=== PATIENT | female | born 1930 | race Caucasian/White ===

== ENCOUNTER 2017-06-29 07:55 | Inpatient (IN) ==
[2017-06-29] MEDS ORDERED: IOPAMIDOL 100 ML BOTTLE IV ONE (07:56)
--- NOTE | 2017-06-29 08:28 | Emergency Department Note ---
Chest Pain HPI - General Chief Complaint: Chest Pain Stated Complaint: Weakness, Shortness of breath Time Seen by Provider: 06/29/17 08:24 Source: patient Mode of arrival: ambulatory Limitations: no limitations - History of Present Illness HPI Narrative: 86-year-old female with a history of chest pain with some shortness of breath. Had some signs and symptoms yesterday in the evening and afternoon. Also had some shortness of breath and chest pain this morning. She had some left knee pain as well as she was doing some extra walking. Today she has no pain in her calves or her knee.. At this time she is having very minima signs or symptoms they said that very dull chest pain she had is not present at this time. And the family had to remind her that she states she said she had some pain earlier at this time she denies she does take some Lasix for swelling in her lower extremities but they do not know that she has any sort of asthma COPD or CHF - Related Data Home Medications Medication Instructions Recorded Confirmed aspirin 81 mg tablet,delayed 81 mg PO QDAY 09/10/16 06/29/17 release cholecalciferol (vitamin D3) 1,000 1,000 unit PO QDAY cap 09/10/16 06/29/17 unit capsule potassium gluconate 500 mg (83 mg) 500 mg PO QDAY tab 09/10/16 06/29/17 tablet Oxybutynin Chloride [Ditropan] 10 mg PO BID 06/29/17 06/29/17 Previous Rx's Medication Instructions Recorded Four Wheeled Walker #1 each 08/28/15 furosemide 20 mg tablet See Dose Instructions PO QDAY PRN 06/27/16 90 Days #90 tab bupropion HCl SR 150 mg tablet,12 150 mg PO QAM 90 Days #90 tab 10/21/16 hr sustained-release citalopram 40 mg tablet 40 mg PO QDAY 90 Days #90 tab 12/02/16 simvastatin 20 mg tablet 20 mg PO QPM 90 Days #90 tab 12/02/16 Allergies Allergy/AdvReac Type Severity Reaction Status Date / Time adhesive tape Allergy Intermediate unknown Verified 02/17/17 16:31 Review of Systems All systems ED: reviewed and negative except as stated. Constitutional: Denies: fever, chills Eyes: Denies: eye pain ENT ED: Denies: ear pain Cardiovascular: Reports: chest pain (Resolved at this time). Denies: palpitations, dyspnea on exertion, orthopnea, edema Respiratory: Reports: as per HPI, shortness of breath. Denies: cough, hemoptysis Gastrointestinal: Denies: abdominal pain, nausea Genitourinary: Denies: urgency, dysuria, frequency Musculoskeletal: Denies: back pain Integumentary: Denies: rash Neurological: Denies: headache Psychiatric: Denies: anxiety, depression Endocrine: Denies: fatigue Hematological/Lymphatic: Denies: easy bleeding Allergic/Immunologic: Denies: facial swelling Chest Pain PMH - Past Medical History Medical history: Reports: hyperlipidemia, osteoporosis, other (Bladder incontinence) Psychiatric history: Reports: depression - Social History smoking status: Never smoker Physical Exam Limitations: no limitations Course Vital Signs Pulse Rate 74 06/29/17 07:56 Respiratory Rate 30 H 06/29/17 07:56 Pulse Oximetry (%) 93 06/29/17 07:56 Pulse Rate 75 06/29/17 08:25 Respiratory Rate 23 H 06/29/17 08:25 Blood Pressure 127/81 06/29/17 08:16 Pulse Oximetry (%) 97 06/29/17 08:25 Chest Pain - MDM Narrative Medical decision making narrative: Waiting for results of laboratory and x-rays patient transferred the care of Dr. power at 0900 hrs. - Lab Data Result diagrams: 06/29/17 08:19 06/29/17 08:18 Lab Results 06/29/17 06/29/17 Range/Units 08:18 08:19 WBC 9.9 (4.5-11.0) K/mcL RBC 3.57 L (4.00-5.20) M/mcL Hgb 11.8 L (12.0-15.0) g/dL Hct 34.5 L (36.0-48.0) % MCV 96.7 (80.0-100.0) fL MCH 33.0 (26.0-34.0) pg MCHC 34.2 (31.0-36.0) g/dL RDW 13.0 (11.5-14.5) % Plt Count 218 (140-440) K/mcL MPV 9.7 (7.4-10.4) fL Gran % 82.1 H (38.0-78.0) % Lymph % (Auto) 10.1 L (15.5-49.0) % [place] % (Auto) 5.9 (1.0-12.0) % Eos % (Auto) 1.7 (0.0-7.0) % Baso % (Auto) 0.2 (0.0-2.0) % Gran # 8.2 H (1.8-8.0) K/mcL Lymph # (Auto) 1.0 L (1.5-4.8) K/mcL [place] # (Auto) 0.6 (0.1-0.9) K/mcL Eos # (Auto) 0.2 (0.0-0.7) K/mcL Baso # (Auto) 0 (0.0-0.3) K/mcL VBG Lactic Acid 1.7 (0.5-2.2) mmol/L Disposition Pt seen by PERIOPERATIVE NURSE/PA only: No Referrals: Nikhil Estrada MD [Primary Care Provider] -
[2017-06-29 08:50] LABS: Basophils # (Auto) 0 K/mcL (0.0-0.3); Basophils % (Auto) 0.2 % (0.0-2.0); Eosinophils # (Auto) 0.2 K/mcL (0.0-0.7); Eosinophils % (Auto) 1.7 % (0.0-7.0); Granulocytes % (Auto) 82.1 % (38.0-78.0); Lymphocytes % (Auto) 10.1 % (15.5-49.0); Mean Cell Volume 96.7 fL (80.0-100.0); Mean Corpuscular HGB Conc 34.2 g/dL (31.0-36.0); Monocytes # (Auto) 0.6 K/mcL (0.1-0.9); Monocytes % (Auto) 5.9 % (1.0-12.0); Platelet Count 218 K/mcL (140-440); RBC 3.57 M/mcL (4.00-5.20)
--- NOTE | 2017-06-29 09:01 | XRay Report ---
INDICATION: Chest pain. Dyspnea. TECHNIQUE: PA and lateral upright chest x-ray COMPARISON: 02/01/2017, 08/20/2012 FINDINGS:No focal pulmonary infiltrate or mass. Heart size is within normal limits and stable. No pulmonary edema. No pulmonary congestion. There is minimal blunting of the right posterior costophrenic sulcus which may indicate a very small effusion. There is mild right convex thoracolumbar scoliosis Chest x-ray is otherwise stable. IMPRESSION: 1. No pulmonary edema or pulmonary congestion 2. No significant interval change since 02/01/2017 Interpreted and Authenticated by: Timothy Cee 06/29/17
[2017-06-29 09:12] LABS: ALT/SGPT 10 U/l (0-40); Albumin 3.5 gm/dL (3.2-5.2); Albumin/Globulin Ratio 1.3 (1.0-2.3); Alkaline Phosphatase 83 U/L (39-117); Blood Urea Nitrogen 15 mg/dl (8-23); Creatine Kinase 83 IU/L (24-170); Creatine Kinase MB 6.2 ng/ml (0-2.9)
[2017-06-29] MEDS: NITROGLYCERIN 0.4 MG TAB.SUBL SL PRN ×2 (10:19→10:38)
[2017-06-29 10:54] LABS: Myoglobin 107 ng/ml (25-58)
[2017-06-29] MEDS ORDERED: LORazepam 2 MG/ML VIAL IV ONE (12:10)
--- NOTE | 2017-06-29 12:49 | Emergency Department Note ---
Chest Pain HPI - General Chief Complaint: Chest Pain Stated Complaint: Weakness, Shortness of breath Time Seen by Provider: 06/29/17 08:24 Source: patient Mode of arrival: ambulatory Limitations: no limitations - Related Data Home Medications Medication Instructions Recorded Confirmed aspirin 81 mg tablet,delayed 81 mg PO QDAY 09/10/16 06/29/17 release cholecalciferol (vitamin D3) 1,000 1,000 unit PO QDAY cap 09/10/16 06/29/17 unit capsule potassium gluconate 500 mg (83 mg) 500 mg PO QDAY tab 09/10/16 06/29/17 tablet Oxybutynin Chloride [Ditropan] 10 mg PO BID 06/29/17 06/29/17 Previous Rx's Medication Instructions Recorded Four Wheeled Walker #1 each 08/28/15 furosemide 20 mg tablet See Dose Instructions PO QDAY PRN 06/27/16 90 Days #90 tab bupropion HCl SR 150 mg tablet,12 150 mg PO QAM 90 Days #90 tab 10/21/16 hr sustained-release citalopram 40 mg tablet 40 mg PO QDAY 90 Days #90 tab 12/02/16 simvastatin 20 mg tablet 20 mg PO QPM 90 Days #90 tab 12/02/16 Allergies Allergy/AdvReac Type Severity Reaction Status Date / Time adhesive tape Allergy Intermediate unknown Verified 02/17/17 16:31 Review of Systems Constitutional: Denies: fever, chills Eyes: Denies: eye pain ENT ED: Denies: ear pain Cardiovascular: Reports: chest pain (Resolved at this time). Denies: palpitations, dyspnea on exertion, orthopnea, edema Respiratory: Reports: as per HPI, shortness of breath. Denies: cough, hemoptysis Gastrointestinal: Denies: abdominal pain, nausea Genitourinary: Denies: urgency, dysuria, frequency Musculoskeletal: Denies: back pain Integumentary: Denies: rash Neurological: Denies: headache Psychiatric: Denies: anxiety, depression Endocrine: Denies: fatigue Hematological/Lymphatic: Denies: easy bleeding Allergic/Immunologic: Denies: facial swelling Chest Pain PMH - Past Medical History Medical history: Reports: hyperlipidemia, osteoporosis, other (Bladder incontinence) Psychiatric history: Reports: depression - Social History smoking status: Never smoker Physical Exam Limitations: no limitations Course Vital Signs Pulse Rate 74 06/29/17 07:56 Respiratory Rate 30 H 11/19/17 07:56 Pulse Oximetry (%) 93 06/29/17 07:56 Pulse Rate 64 06/29/17 12:01 Respiratory Rate 33 H 06/29/17 12:01 Blood Pressure 96/74 06/29/17 12:01 Pulse Oximetry (%) 89 L 06/29/17 12:01 Chest Pain - MDM Narrative Medical decision making narrative: This patient has fairly extensive pulmonary emboli bilaterally but not something that would require thrombolysis currently. She will be admitted to telemetry. - Lab Data Lab results reviewed: Yes I reviewed the patient's lab results. Result diagrams: 06/29/17 08:19 06/29/17 08:18 Lab Results 06/29/17 06/29/17 06/29/17 Range/Units 08:18 08:18 08:18 WBC (4.5-11.0) K/mcL RBC (4.00-5.20) M/mcL Hgb (12.0-15.0) g/dL Hct (36.0-48.0) % MCV (80.0-100.0) fL MCH (26.0-34.0) pg MCHC (31.0-36.0) g/dL RDW (11.5-14.5) % Plt Count (140-440) K/mcL MPV (7.4-10.4) fL Gran % (38.0-78.0) % Lymph % (Auto) (15.5-49.0) % [place] % (Auto) (1.0-12.0) % Eos % (Auto) (0.0-7.0) % Baso % (Auto) (0.0-2.0) % Gran # (1.8-8.0) K/mcL Lymph # (Auto) (1.5-4.8) K/mcL [place] # (Auto) (0.1-0.9) K/mcL Eos # (Auto) (0.0-0.7) K/mcL Baso # (Auto) (0.0-0.3) K/mcL D-Dimer (0.00-0.40) ug/ml VBG Lactic Acid 1.7 (0.5-2.2) mmol/L Sodium 139 (133-145) mmol/L Potassium 3.5 (3.3-5.1) mmol/L Chloride 102 (96-108) mmol/L Carbon Dioxide 23 (22-30) mmol/L Anion Gap 14.0 (8-16) BUN 15 (8-23) mg/dl Creatinine 0.7 (0.6-1.1) mg/dl GFR Calculation 78 Glucose 108 H (70-105) mg/dL Calcium 8.4 L (8.6-10.4) mg/dl Total Bilirubin 0.7 (0.0-1.0) mg/dL AST 14 (0-37) U/l ALT 10 (0-40) U/l Alkaline Phosphatase 83 (39-117) U/L Total Creatine Kinase 83 (24-170) IU/L CK-MB (CK-2) 6.2 H (0-2.9) ng/ml Myoglobin (25-58) ng/ml Troponin T 0.02 (0-0.03) ng/ml NT-Pro-B Natriuret Pep (0-450) pg/ml Total Protein 6.1 (5.9-8.4) gm/dL Albumin 3.5 (3.2-5.2) gm/dL Globulin 2.6 (2.2-3.7) gm/dL Albumin/Globulin Ratio 1.3 (1.0-2.3) 06/29/17 06/29/17 06/29/17 Range/Units 08:18 08:19 09:43 WBC 9.9 (4.5-11.0) K/mcL RBC 3.57 L (4.00-5.20) M/mcL Hgb 11.8 L (12.0-15.0) g/dL Hct 34.5 L (36.0-48.0) % MCV 96.7 (80.0-100.0) fL MCH 33.0 (26.0-34.0) pg MCHC 34.2 (31.0-36.0) g/dL RDW 13.0 (11.5-14.5) % Plt Count 218 (140-440) K/mcL MPV 9.7 (7.4-10.4) fL Gran % 82.1 H (38.0-78.0) % Lymph % (Auto) 10.1 L (15.5-49.0) % [place] % (Auto) 5.9 (1.0-12.0) % Eos % (Auto) 1.7 (0.0-7.0) % Baso % (Auto) 0.2 (0.0-2.0) % Gran # 8.2 H (1.8-8.0) K/mcL Lymph # (Auto) 1.0 L (1.5-4.8) K/mcL [place] # (Auto) 0.6 (0.1-0.9) K/mcL Eos # (Auto) 0.2 (0.0-0.7) K/mcL Baso # (Auto) 0 (0.0-0.3) K/mcL D-Dimer > 20.00 H (0.00-0.40) ug/ml VBG Lactic Acid (0.5-2.2) mmol/L Sodium (133-145) mmol/L Potassium (3.3-5.1) mmol/L Chloride (96-108) mmol/L Carbon Dioxide (22-30) mmol/L Anion Gap (8-16) BUN (8-23) mg/dl Creatinine (0.6-1.1) mg/dl GFR Calculation Glucose (70-105) mg/dL Calcium (8.6-10.4) mg/dl Total Bilirubin (0.0-1.0) mg/dL AST (0-37) U/l ALT (0-40) U/l Alkaline Phosphatase (39-117) U/L Total Creatine Kinase (24-170) IU/L CK-MB (CK-2) (0-2.9) ng/ml Myoglobin (25-58) ng/ml Troponin T (0-0.03) ng/ml NT-Pro-B Natriuret Pep 4706.0 H (0-450) pg/ml Total Protein (5.9-8.4) gm/dL Albumin (3.2-5.2) gm/dL Globulin (2.2-3.7) gm/dL Albumin/Globulin Ratio (1.0-2.3) 06/29/17 06/29/17 Range/Units 10:24 10:24 WBC (4.5-11.0) K/mcL RBC (4.00-5.20) M/mcL Hgb (12.0-15.0) g/dL Hct (36.0-48.0) % MCV (80.0-100.0) fL MCH (26.0-34.0) pg MCHC (31.0-36.0) g/dL RDW (11.5-14.5) % Plt Count (140-440) K/mcL MPV (7.4-10.4) fL Gran % (38.0-78.0) % Lymph % (Auto) (15.5-49.0) % [place] % (Auto) (1.0-12.0) % Eos % (Auto) (0.0-7.0) % Baso % (Auto) (0.0-2.0) % Gran # (1.8-8.0) K/mcL Lymph # (Auto) (1.5-4.8) K/mcL [place] # (Auto) (0.1-0.9) K/mcL Eos # (Auto) (0.0-0.7) K/mcL Baso # (Auto) (0.0-0.3) K/mcL D-Dimer (0.00-0.40) ug/ml VBG Lactic Acid (0.5-2.2) mmol/L Sodium (133-145) mmol/L Potassium (3.3-5.1) mmol/L Chloride (96-108) mmol/L Carbon Dioxide (22-30) mmol/L Anion Gap (8-16) BUN (8-23) mg/dl Creatinine (0.6-1.1) mg/dl GFR Calculation Glucose (70-105) mg/dL Calcium (8.6-10.4) mg/dl Total Bilirubin (0.0-1.0) mg/dL AST (0-37) U/l ALT (0-40) U/l Alkaline Phosphatase (39-117) U/L Total Creatine Kinase (24-170) IU/L CK-MB (CK-2) (0-2.9) ng/ml Myoglobin 107 H (25-58) ng/ml Troponin T 0.03 (0-0.03) ng/ml NT-Pro-B Natriuret Pep (0-450) pg/ml Total Protein (5.9-8.4) gm/dL Albumin (3.2-5.2) gm/dL Globulin (2.2-3.7) gm/dL Albumin/Globulin Ratio (1.0-2.3) - Radiology Data Radiology results reviewed: Yes I reviewed the patient's radiology results. Disposition Pt seen by POLICY CHANGE CLERK/PA only: No Clinical Impression: Pulmonary embolism Disposition: Xfer As Inpt ([facility]) Condition: Good Referrals: Nikhil Estrada MD [Primary Care Provider] - Time of Disposition: 12:49
--- NOTE | 2017-06-29 12:54 | Cat Scan Report ---
CLINICAL INFORMATION: Elevated d-dimer. Dyspnea. COMPARISON: Previous chest x-rays dated 06/29/2017, 02/01/2017, 08/20/2012. TECHNIQUE: Axial images obtained through the chest. 80 mL intravenous contrast was administered, and scanning was performed during pulmonary arterial phase. Sagittally and coronally reformatted images were obtained. MIP reformatted images. FINDINGS: Positive examination for pulmonary embolism. There is thrombus in the right main pulmonary artery. This extends into the right upper lobe pulmonary artery. There is extensive clot within right lower lobe pulmonary artery extending into the posterior basilar and medial basilar segmental branches. There is clot in the distal left pulmonary artery. This extends into the lingular branch and segmental branches. As extensive clot within normal left lower lobe pulmonary artery. There is clot at the origin of the left upper lobe pulmonary artery. There is mild bilateral lower lobe pulmonary parenchymal density which may be atelectasis. No wedge-shaped abnormalities. Upper lungs are negative. No parenchymal mass. No pathologic mediastinal or hilar adenopathy. No axillary adenopathy. 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 There is a large hiatal hernia. There is a 1.5 cm low-density lesion in the left lobe of the liver. This is indeterminate. No thoracic compression fracture Dr. John was called with these results, 06/29/2017, 1240 IMPRESSION: 1. Stents of pulmonary embolism with bilateral emboli to the right and left pulmonary arteries as well as both lower lobe pulmonary arteries. There is right upper lobe embolism and lingular emboli. 2. Mild bilateral lower lobe pulmonary parenchymal densities most consistent with dependent atelectasis 3. Large hiatal hernia. 4. Substernal goiter 5. 1.5 cm indeterminate low-density lesion in the left lobe the liver. Interpreted and Authenticated by: Timothy Cee 06/29/17
[2017-06-29] MEDS ORDERED: ENOXAPARIN 80 MG/0.8 ML SYRINGE SQ ONE ×2 (13:20→13:22)
[2017-06-29] MEDS ORDERED: ACETAMINOPHEN 325 MG TABLET PO PRN (14:47)
[2017-06-29] MEDS ORDERED: HYDROcodone/APAP 5/325MG TABLET PO PRN (14:47)
[2017-06-29] MEDS ORDERED: ALBUTEROL SULFATE 2.5 MG/3 ML NEBULIZER NEB PRN (14:47)
[2017-06-29] MEDS ORDERED: ONDANSETRON 4 MG/2 ML VIAL IV PRN (14:47)
[2017-06-29] MEDS: PANTOPRAZOLE 40 MG TABLET PO SCH (15:19)
[2017-06-29] MEDS: 0.9 % SODIUM CHLORIDE 10 ML SYRINGE IV SCH ×2 (15:20→22:30)
[2017-06-29] MEDS: 0.9 % SODIUM CHLORIDE 1,000 ML IV SCH (15:20)
[2017-06-29] MEDS: LORazepam 0.5 MG TABLET PO PRN (19:20)
[2017-06-29] MEDS: OXYBUTYNIN CHLORIDE 5 MG TABLET PO SCH (20:20)
[2017-06-29] MEDS: SIMVASTATIN 20 MG TABLET PO SCH (20:20)
[2017-06-29] MEDS: ENOXAPARIN 80 MG/0.8 ML SYRINGE SQ SCH (20:20)
--- NOTE | 2017-06-29 22:43 | Internal Med History&Physical ---
Medical - H&P: [facility] Patient information: Note initiated : 06/29/17 at 10:43 pm Service Date, if different from initiated Date: [] Patient: Erin Tanner a 86 y/o F admitted on 06/29/17 for Weakness, Shortness of breath. Chief Complaint: Chest pain, dyspnea History of present illness: Ms. Tanner is a 86 year old F with a history of depression, hypercholesterolemia, reflux, osteoporosis, back surgery with left foot drop who presents with chest pain. History is obtained in speaking to the family, the patient's history is vague and tangential at times, evidence of memory impairment becoming clearer during the interview. Old records were also reviewed and summarized as appropriate below. Patient apparently started developing chest pain last night or early today. She states she has been not feeling well for the last week, but is unable to quantify exactly what has been bothering her. The first the family has heard of any chest pains worse this morning when she arose. After further questioning , the patient thinks the pain developed overnight. Family notes that yesterday overall she is just not feeling well she was very weak when she was trying to move from place to place, though there was no apparent dyspnea and she was not complaining of chest pain or leg pain or swelling. This morning she was complaining of chest pain. It is sharp pain. It is worse with deep inspiration. 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 It's unclear if that is changed at all recently. The patient did have some nauseous morning. She's had no emesis. She's had no epistaxis, no matter which area, no hematemesis, no hematochezia/melena/maroon stools. The patient does not recall a history of clotting, but her daughter thinks she was on warfarin at some point in the past. Her daughter had a PE after recent abdominal surgery. Evaluation in the emergency department included elevated d-dimer, leading to CT angios the chest showing extensive bilateral pulmonary emboli. Patient's being hospitalized for treatment of pulmonary embolism. Review of systems: The remainder of review of systems cannot be reliably obtained due to the patient's impaired memory. Medical - H&P: PMH Medical history: Bronchitis (Acute) Ataxia (Chronic) Urinary incontinence (Acute) Osteoporosis (Acute) Joint effusion-lower leg (Acute) Hyperlipidemia (Acute) Foot drop (Acute) Esophageal reflux (Acute) Dizziness (Acute) Depression (Acute) Degenerative arthritis (Acute) Anxiety (Acute) Cough (Acute) Surgical history: History of back surgery (Chronic) H/O: hysterectomy (Acute) History of hip surgery (Acute) H/O colonoscopy (Acute) Pertinent family history: Patient's daughter had a provoked pulmonary embolism after abdominal surgery recently. Social history: Lives with her . Daughter helps provide care. Patient has up to 3 vodka drinks a day. She does not smoke tobacco. Functional capacity: uses cane/walker Medical - H&P: Meds Home Medications Medication Instructions Recorded Confirmed Type Four Wheeled Walker #1 each 08/28/15 02/17/17 Rx aspirin 81 mg tablet,delayed 81 mg PO QDAY 09/10/16 06/29/17 History release cholecalciferol (vitamin D3) 1,000 1,000 unit PO QDAY cap 09/10/16 06/29/17 History unit capsule potassium gluconate 500 mg (83 mg) 500 mg PO QDAY tab 09/10/16 06/29/17 History tablet bupropion HCl SR 150 mg tablet,12 150 mg PO QAM 90 Days #90 tab 10/21/16 Rx hr sustained-release citalopram 40 mg tablet 40 mg PO QDAY 90 Days #90 tab 12/02/16 06/29/17 Rx simvastatin 20 mg tablet 20 mg PO QPM 90 Days #90 tab 12/02/16 06/29/17 Rx Furosemide [Lasix] 10 - 20 mg PO DAILYP PRN 06/29/17 06/29/17 History Multivit,Ther Iron,Ca,FA & Min 1 tab PO DAILY 06/29/17 06/29/17 History [Multivitamin W/Minerals] Oxybutynin Chloride [Ditropan] 5 mg PO BID 06/29/17 06/29/17 History Allergies Allergy/AdvReac Type Severity Reaction Status Date / Time adhesive tape Allergy Intermediate unknown Verified 02/17/17 16:31 Medical - H&P: Exam - Constitutional Vitals: Temp Pulse Resp BP Pulse Ox 100.3 F H 94 H 20 120/107 94 06/29/17 15:06 06/29/17 16:01 06/29/17 18:01 06/29/17 18:01 06/29/17 18:01 Exam: General: Alert, in no acute distress HEENT: Normocephalic. Pupils are equally round and reactive to light. Sclera are anicteric. No conjunctival injection. Oropharynx is with moist mucous membranes, no lip or gum lesions. Tongue is midline. Neck: Supple, no meningismus. No thyromegaly. Chest: Clear to auscultation bilaterally with no rales or wheezes. No accessory muscle use. Cardiovascular: Regular rate and rhythm without murmur gallop or rub. Carotid pulses are 2+ without bruit. There is no lower extremity edema. JVP is normal. Abdomen: Soft, nontender without guarding or rebound. Active bowel sounds. No hepatosplenomegaly. Skin: No rash. Skin turgor is decreased Musculoskeletal: Marked degenerative changes in the hands and feet. Left foot drop. Extremities are cool to the touch in the bilateral lower extremities. No clubbing, no edema. Neuro: Alert, oriented to person, not to situation or date. Cranial nerves II through XII grossly intact. Sensation intact to light touch. Psychiatric: Affect a bit combative, abnormal orientation, poor insight. Medical - H&P: Reslt - Labs CBC & Chem 7: 06/29/17 08:19 06/29/17 08:18 Labs: Short CBC 06/29/17 Range/Units 08:19 WBC 9.9 (4.5-11.0) K/mcL Hgb 11.8 L (12.0-15.0) g/dL Hct 34.5 L (36.0-48.0) % Plt Count 218 (140-440) K/mcL [facility] 06/29/17 08:18 Sodium 139 Potassium 3.5 Chloride 102 Carbon Dioxide 23 BUN 15 Creatinine 0.7 Glucose 108 H Calcium 8.4 L Cardiac Enzymes 06/29/17 06/29/17 06/29/17 Range/Units 08:18 08:18 10:24 Total Creatine Kinase 83 (24-170) IU/L CK-MB (CK-2) 6.2 H (0-2.9) ng/ml Troponin T 0.02 0.03 (0-0.03) ng/ml Liver Function 06/29/17 Range/Units 08:18 Total Bilirubin 0.7 (0.0-1.0) mg/dL AST 14 (0-37) U/l ALT 10 (0-40) U/l Alkaline Phosphatase 83 (39-117) U/L Albumin 3.5 (3.2-5.2) gm/dL - EKG Data -: EKG Reviewed by Myself EKG shows normal: sinus rhythm, ST-T waves - Imaging and Cardiology CT scan - chest Status: image reviewed by me Additional comments: IMPRESSION: 1. Extensive pulmonary embolism with bilateral emboli to the right and left pulmonary arteries as well as both lower lobe pulmonary arteries. There is right upper lobe embolism and lingular emboli. 2. Mild bilateral lower lobe pulmonary parenchymal densities most consistent with dependent atelectasis 3. Large hiatal hernia. 4. Substernal goiter 5. 1.5 cm indeterminate low-density lesion in the left lobe the liver Medical - H&P: A/P (1) Pulmonary embolism Current visit: Yes Status: Acute (2) Depression Problem details: Chronic-Celexa Current visit: No Status: Acute (3) Hyperlipidemia Current visit: No Status: Acute - Narrative A/P Narrative: 86-year-old female presenting with pleuritic chest pain, found to have extensive pulmonary emboli. Pulmonary emboli. Hemodynamically stable. Troponins were normal. Concern for possibility of cor pulmonale just given the extent of clot burden. Will require inpatient hospitalization for initiation of anticoagulation and close monitoring of hemodynamic status while clot burden stabilizes. The patient has been fairly sedentary and spends many hours a day in her chair at home. That may be the predisposition for this clot. The last colonoscopy she had showed no findings and she was told she would not require further screening. Chest CT without obvious findings of mass or adenopathy. Suspicion of occult malignancy is lower. Plan: 1. Inpatient hospitalization 2. Begin Lovenox at full dose anticoagulation 3. Initially discussed warfarin versus novel anticoagulation with family. We' ll continue discussion and eventually convert to oral. 4. Check echocardiogram to evaluate RV function 5. If develops hemodynamic instability or has significant RV dysfunction, consider transfer for directed thrombolysis Depression with anxiety. Suspect there is also an underlying component of dementia with the patient confabulating and being evasive on answers. Plan: Continue with current regimen. Hyperlipidemia, on simvastatin. Should not interfere with anticoagulation therapy. Plan: Continue simvastatin. Prophylaxis: Begin PPI, she is therapeutically anticoagulated. CODE STATUS: The patient initially wanted DO NOT RESUSCITATE CODE STATUS when I spoke with her in the ED. Subsequently in the ICU, she discussed with her nurse as well as with family who were again present and expressed the wish to have full CODE STATUS. Medical - H&P: Qual - Stroke Symptom Onset Unknown: No - VTE Deep Vein Thrombosis/Pulmonary Embolism Present on Admission: Yes
[2017-06-30] MEDS: 0.9 % SODIUM CHLORIDE 1,000 ML IV SCH ×2 (01:55→11:57)
[2017-06-30 05:38] LABS: Basophils # (Auto) 0 K/mcL (0.0-0.3); Basophils % (Auto) 0.3 % (0.0-2.0); Eosinophils # (Auto) 0.1 K/mcL (0.0-0.7); Lymphocytes # (Auto) 1.4 K/mcL (1.5-4.8); Lymphocytes % (Auto) 13.4 % (15.5-49.0); Mean Cell Volume 96.4 fL (80.0-100.0); Mean Corpuscular HGB Conc 33.9 g/dL (31.0-36.0); Mean Corpuscular Hemoglobin 32.7 pg (26.0-34.0); Monocytes # (Auto) 0.7 K/mcL (0.1-0.9); Monocytes % (Auto) 7.3 % (1.0-12.0); Platelet Count 177 K/mcL (140-440); RBC 3.21 M/mcL (4.00-5.20); Red Cell Distribution Width 13.3 % (11.5-14.5)
[2017-06-30 06:02] LABS: Blood Urea Nitrogen 13 mg/dl (8-23)
[2017-06-30] MEDS: 0.9 % SODIUM CHLORIDE 10 ML SYRINGE IV SCH ×3 (06:02→21:30)
[2017-06-30] MEDS: PANTOPRAZOLE 40 MG TABLET PO SCH (08:25)
[2017-06-30] MEDS: CITALOPRAM 20 MG TABLET PO SCH (08:26)
[2017-06-30] MEDS: ENOXAPARIN 80 MG/0.8 ML SYRINGE SQ SCH ×2 (08:26→21:29)
[2017-06-30] MEDS: OXYBUTYNIN CHLORIDE 5 MG TABLET PO SCH ×2 (08:28→21:30)
[2017-06-30] MEDS: buPROPion 150 MG TAB.SR.12H PO SCH (12:04)
[2017-06-30] MEDS: LORazepam 0.5 MG TABLET PO PRN ×2 (12:22→21:30)
[2017-06-30] MEDS ORDERED: POTASSIUM CHLORIDE 20 MEQ PACKET PO ONE (15:28)
--- NOTE | 2017-06-30 16:31 | Internal Med Progress Note ---
Medical - PN: Subj Patient information: Note initiated : 06/30/17 at 4:28 pm Service Date, if different from initiated Date: [] Patient: Erin Tanner 86 y/o F admitted on 06/29/17 for Weakness, SOB/ Pulmonary Embolism. Chief Complaint: f/u PE's Interval history: June 29: Admitted with extensive bilateral PE after presenting with chest pain. June 30: Remains hemodynamically stable. No further chest pain. She does not recall having chest pain at presentation. She says she remembers me this morning, though she did not remember me yesterday evening from the ER where we met earlier in the day. No chest pain. No nausea or vomiting. Appetite is pretty good. Taking lots of fluids. - Constitutional Vitals: Vital Signs Temp Pulse Resp BP Pulse Ox 99.6 F H 94 H 22 124/76 92 06/30/17 14:51 06/29/17 16:01 06/30/17 14:51 06/30/17 14:51 06/30/17 14:51 Period Temp Pulse Resp BP Sys/[place]all Pulse Ox Last 24 Hr 97.5 F-99.6 F 16-24 87-128/53-107 92-94 Intake and Output 06/30/17 06/30/17 06/30/17 05:59 13:59 21:59 Intake Total 1000 / 1000 1920 / 1920 780 / 780 Output Total 2 / 2 2 / 2 Balance 998 / 998 1917 779 / 779 Weight 147 lb 4.8 oz Patient Weight 07/01/17 05:59 Weight 147 lb 4.8 oz Intake & Output: Intake & Output 06/30/17 06/30/17 06/30/17 05:59 13:59 21:59 Intake Total 1000 / 1000 1920 / 1920 780 / 780 Output Total 2 / 2 2 / 2 Balance 998 / 998 1917 779 / 779 Weight 147 lb 4.8 oz Intake: IV 1000 / 1000 1000 / 1000 360 / 360 Sodium Chloride 0.9% 1,000 ml @ 1000 / 1000 1000 / 1000 360 / 360 100 mls/hr IV .Q10H [facility] Rx#: [id number] Oral 920 / 920 420 / 420 Output: # of times incontinent of urine 2 / 2 2 / 2 1 / 1 Other: Meal Lunch Percent of Meal Consumed 100% Feeding Ability Assist with Tray Set Up Exam: General: Laying in bed in no acute distress Chest: Good respiratory effort, clear Cardiovascular: Regular, no gallop appreciated. Abdomen: Soft, nontender Extremities: Left foot remains cool. Apparently she's always had cold feet. Neuro: Alert, oriented to herself, poor insight into her condition. Medical - PN: Obj Da - Labs CBC & Chem 7: 06/30/17 03:41 06/30/17 03:41 Labs: Abnormal Lab Results 06/30/17 06/30/17 06/29/17 03:41 03:41 10:24 RBC 3.21 L Hgb 10.5 L Hct 30.9 L Gran % Lymph % (Auto) 13.4 L Gran # Lymph # (Auto) 1.4 L D-Dimer Potassium 3.2 L Glucose 124 H Calcium 8.0 L CK-MB (CK-2) Myoglobin 107 H NT-Pro-B Natriuret Pep 30944.0 H 06/29/17 06/29/17 06/29/17 09:43 08:19 08:18 RBC 3.57 L Hgb 11.8 L Hct 34.5 L Gran % 82.1 H Lymph % (Auto) 10.1 L Gran # 8.2 H Lymph # (Auto) 1.0 L D-Dimer > 20.00 H Potassium Glucose Calcium CK-MB (CK-2) Myoglobin NT-Pro-B Natriuret Pep 4706.0 H 06/29/17 08:18 RBC Hgb Hct Gran % Lymph % (Auto) Gran # Lymph # (Auto) D-Dimer Potassium Glucose 108 H Calcium 8.4 L CK-MB (CK-2) 6.2 H Myoglobin NT-Pro-B Natriuret Pep Meds: Medications Acetaminophen (Tylenol) 650 mg PO Q6HP PRN PRN Reason: PAIN/FEVER > 101 Hydrocodone Bitart/Acetaminophen ([place] 5/325mg) 1 tab PO Q4HP PRN PRN Reason: PAIN LEVEL 3-6 Last Admin: 06/29/17 20:20 Dose: 1 tab Albuterol Sulfate (Ventolin) 2.5 mg NEB Q4HP PRN PRN Reason: Dyspnea Bupropion HCl (Wellbutrin Sr) 150 mg PO QAM [facility] Last Admin: 06/30/17 12:04 Dose: 150 mg Citalopram Hydrobromide (Celexa) 40 mg PO DAILY [facility] Last Admin: 06/30/17 08:26 Dose: 40 mg Enoxaparin Sodium (Lovenox) 80 mg SQ BID [facility] Last Admin: 06/30/17 08:26 Dose: 80 mg Lorazepam (Ativan) 0.5 mg PO Q4HP PRN PRN Reason: ANXIETY/SEDATION Last Admin: 06/30/17 12:22 Dose: 0.5 mg Morphine Sulfate (Morphine) 2 mg IV Q3HP PRN PRN Reason: PAIN LEVEL > 6 Last Admin: 06/29/17 19:20 Dose: 2 mg Ondansetron HCl (Zofran) 4 mg IV Q4HP PRN PRN Reason: Nausea And Vomiting Oxybutynin Chloride (Ditropan) 5 mg PO BID [facility] Last Admin: 06/30/17 08:28 Dose: 5 mg Pantoprazole Sodium (Protonix) 40 mg PO QAMAC [facility] Last Admin: 06/30/17 08:25 Dose: 40 mg Simvastatin (Zocor) 20 mg PO QPM [facility] Last Admin: 06/29/17 20:20 Dose: 20 mg Sodium Chloride (Saline Flush) 10 ml IV Q8 [facility] Last Admin: 06/30/17 14:33 Dose: Not Given Medical - PN: A/P - Time Spent With Patient Total time spent is greater than 50% in coordination of care (as documented) at patient's floor/unit and/or counseling patient: (1) Pulmonary embolism Status: Acute Current Visit: Yes (2) Depression Problem details: Chronic-Celexa Status: Acute Current Visit: No (3) Hyperlipidemia Status: Acute Current Visit: No - Narrative A/P Narrative: 86-year-old female presenting with pleuritic chest pain, found to have extensive pulmonary emboli. Pulmonary emboli. Extensive, multi-lobar and bilateral. Remains hemodynamically stable. BNP elevated further today. Echo results pending to evaluate for cor pulmonale. Continues on full dose Lovenox for PE's. Suspect due to fairly sedentary lifestyle. Plan: Continue full-dose Lovenox, follow-up echo. Will need to d/w family again warfarin vs. NOAC. Monitor hemoglobin and platelets while on full dose heparin. Depression with anxiety. Suspect there is also an underlying component of dementia with the patient confabulating and being evasive on answers. Plan: Continue with current regimen. Suspected dementia. Did not remember me Sun olena after seening her Sun afternoon in the ED. Would explain her vague and deflecting answers to questions. Plan: Monitor. Hyperlipidemia, on simvastatin. Should not interfere with anticoagulation therapy. Plan: Continue simvastatin. Hypokalemia. Plan: Replete Medical - PN: Qual - Stroke Symptom Onset Unknown: No - VTE Deep Vein Thrombosis/Pulmonary Embolism Present on Admission: Yes
[2017-06-30] MEDS: SIMVASTATIN 20 MG TABLET PO SCH (21:30)
[2017-07-01 06:11] LABS: Basophils # (Auto) 0 K/mcL (0.0-0.3); Basophils % (Auto) 0.2 % (0.0-2.0); Eosinophils # (Auto) 0.1 K/mcL (0.0-0.7); Eosinophils % (Auto) 1.1 % (0.0-7.0); Granulocytes % (Auto) 79.3 % (38.0-78.0); Lymphocytes # (Auto) 1.3 K/mcL (1.5-4.8); Mean Cell Volume 97.3 fL (80.0-100.0); Mean Corpuscular HGB Conc 33.5 g/dL (31.0-36.0); Mean Corpuscular Hemoglobin 32.6 pg (26.0-34.0); Monocytes # (Auto) 0.6 K/mcL (0.1-0.9); Monocytes % (Auto) 6.4 % (1.0-12.0); Platelet Count 183 K/mcL (140-440); RBC 3.27 M/mcL (4.00-5.20); Red Cell Distribution Width 13.5 % (11.5-14.5)
[2017-07-01 06:37] LABS: Blood Urea Nitrogen 9 mg/dl (8-23)
[2017-07-01] MEDS: 0.9 % SODIUM CHLORIDE 10 ML SYRINGE IV SCH ×3 (07:00→20:54)
[2017-07-01] MEDS: PANTOPRAZOLE 40 MG TABLET PO SCH (07:42)
[2017-07-01] MEDS ORDERED: POTASSIUM CHLORIDE 20 MEQ PACKET PO ONE (08:32)
[2017-07-01] MEDS: CITALOPRAM 20 MG TABLET PO SCH (09:15)
[2017-07-01] MEDS: buPROPion 150 MG TAB.SR.12H PO SCH (09:15)
[2017-07-01] MEDS: ENOXAPARIN 80 MG/0.8 ML SYRINGE SQ SCH ×2 (09:15→20:54)
[2017-07-01] MEDS: OXYBUTYNIN CHLORIDE 5 MG TABLET PO SCH ×2 (09:15→20:55)
[2017-07-01] MEDS: LORazepam 0.5 MG TABLET PO PRN ×3 (09:45→18:01)
--- NOTE | 2017-07-01 12:23 | Internal Med Progress Note ---
Medical - PN: Subj Patient information: Note initiated : 07/01/17 at 12:21 pm Service Date, if different from initiated Date: [] Patient: Erin Tanner 86 y/o F admitted on 06/29/17 for Weakness, SOB/ Pulmonary Embolism. Chief Complaint: follow-up pulmonary emboli Interval history: June 29: Admitted with extensive bilateral PE after presenting with chest pain. June 30: Remains hemodynamically stable. No further chest pain. She does not recall having chest pain at presentation. She says she remembers me this morning, though she did not remember me yesterday evening from the ER where we met earlier in the day. No chest pain. No nausea or vomiting. Appetite is pretty good. Taking lots of fluids. July 01: Seems much brighter and in better spirits today. Bilateral lower extremities which been cooler now warm. No chest pain. Wants to go home, but is been in bed this point. Subsequently able to get up to chair for breakfast, feels better. Discussed case with her . We'll proceed to change from heparin to either Xarelto or Eliquis at discharge. Xarelto is covered by her insurance plan. - Constitutional Vitals: Vital Signs Temp Pulse Resp BP Pulse Ox 98.4 F 94 H 22 124/82 97 07/01/17 07:04 06/29/17 16:01 07/01/17 07:04 07/01/17 07:04 07/01/17 07:04 Period Temp Pulse Resp BP Sys/[place]all Pulse Ox Last 24 Hr 98.4 F-99.6 F - 108-124/73-84 92-97 Intake and Output 06/30/17 07/01/17 07/01/17 21:59 05:59 13:59 Intake Total 780 / 780 480 / 480 340 / 340 Output Total 2 / 2 Balance 779 / 779 478 / 478 340 / 340 Weight 154 lb Intake & Output: Intake & Output 06/30/17 07/01/17 07/01/17 21:59 05:59 13:59 Intake Total 780 / 780 480 / 480 340 / 340 Output Total 2 / 2 Balance 779 / 779 478 / 478 340 / 340 Weight 154 lb Intake: IV 360 / 360 Sodium Chloride 0.9% 1,000 ml @ 360 / 360 100 mls/hr IV .Q10H [facility] Rx#: [id number] Oral 420 / 420 480 / 480 340 / 340 Output: # of times incontinent of urine Other: Meal Breakfast Percent of Meal Consumed 50% # Bowel Movements 0 Exam: General: In good spirits this morning. Chest: Fine rales left lung field (had been lying on left side), bronchial breath sounds on right. Cardiovascular: Regular rate and rhythm. No heaves, no gallop appreciated. Abdomen: Soft, nontender Extremities: Bilateral lower extremities are warm and perfused, good capillary refill. Deformities of bilateral toes remain Neuro: Alert and oriented to herself, know she is in the hospital. Unclear if she recalls exactly why she is here. She moves all extremities, though is generally weak. Medical - PN: Obj Da - Labs CBC & Chem 7: 07/01/17 03:53 07/01/17 03:53 Labs: Abnormal Lab Results 07/01/17 07/01/17 06/30/17 03:53 03:53 03:41 RBC 3.27 L Hgb 10.6 L Hct 31.8 L Gran % 79.3 H Lymph % (Auto) 13.0 L Gran # Lymph # (Auto) 1.3 L D-Dimer Potassium 3.2 L Carbon Dioxide 21 L Glucose 124 H Calcium 7.8 L 8.0 L CK-MB (CK-2) Myoglobin NT-Pro-B Natriuret Pep 29966.0 H 06/30/17 06/29/17 06/29/17 03:41 10:24 09:43 RBC 3.21 L Hgb 10.5 L Hct 30.9 L Gran % Lymph % (Auto) 13.4 L Gran # Lymph # (Auto) 1.4 L D-Dimer Potassium Carbon Dioxide Glucose Calcium CK-MB (CK-2) Myoglobin 107 H NT-Pro-B Natriuret Pep 4706.0 H 06/29/17 06/29/17 06/29/17 08:19 08:18 08:18 RBC 3.57 L Hgb 11.8 L Hct 34.5 L Gran % 82.1 H Lymph % (Auto) 10.1 L Gran # 8.2 H Lymph # (Auto) 1.0 L D-Dimer > 20.00 H Potassium Carbon Dioxide Glucose 108 H Calcium 8.4 L CK-MB (CK-2) 6.2 H Myoglobin NT-Pro-B Natriuret Pep Meds: Medications Acetaminophen (Tylenol) 650 mg PO Q6HP PRN PRN Reason: PAIN/FEVER > 101 Hydrocodone Bitart/Acetaminophen ([place] 5/325mg) 1 tab PO Q4HP PRN PRN Reason: PAIN LEVEL 3-6 Last Admin: 06/29/17 20:20 Dose: 1 tab Albuterol Sulfate (Ventolin) 2.5 mg NEB Q4HP PRN PRN Reason: Dyspnea Bupropion HCl (Wellbutrin Sr) 150 mg PO QAM [facility] Last Admin: 07/01/17 09:15 Dose: 150 mg Citalopram Hydrobromide (Celexa) 40 mg PO DAILY [facility] Last Admin: 07/01/17 09:15 Dose: 40 mg Enoxaparin Sodium (Lovenox) 80 mg SQ BID [facility] Last Admin: 07/01/17 09:15 Dose: 80 mg Lorazepam (Ativan) 0.5 mg PO Q4HP PRN PRN Reason: ANXIETY/SEDATION Last Admin: 07/01/17 09:45 Dose: 0.5 mg Morphine Sulfate (Morphine) 2 mg IV Q3HP PRN PRN Reason: PAIN LEVEL > 6 Last Admin: 06/29/17 19:20 Dose: 2 mg Ondansetron HCl (Zofran) 4 mg IV Q4HP PRN PRN Reason: Nausea And Vomiting Oxybutynin Chloride (Ditropan) 5 mg PO BID [facility] Last Admin: 07/01/17 09:15 Dose: 5 mg Pantoprazole Sodium (Protonix) 40 mg PO QAMAC [facility] Last Admin: 07/01/17 07:42 Dose: 40 mg Simvastatin (Zocor) 20 mg PO QPM [facility] Last Admin: 06/30/17 21:30 Dose: 20 mg Sodium Chloride (Saline Flush) 10 ml IV Q8 [facility] Last Admin: 07/01/17 07:00 Dose: 10 ml - Impressions Echocardiogram (06/30 AM) Flattened septum is consistent with RV pressure/volume overload, the right ventricular systolic function is mildly reduced. Left ventricle is normal in size, normal wall thickness, mild to moderately reduced LV systolic function, ejection fraction 40-45%. Left atrium and right atrium are moderately dilated. Borderline pulmonary hypertension. Telemetry: remains normal sinus rhythm with rate in the 90s. Medical - PN: A/P (1) Pulmonary embolism Status: Acute Current Visit: Yes (2) Depression Problem details: Chronic-Celexa Status: Acute Current Visit: No (3) Hyperlipidemia Status: Acute Current Visit: No - Narrative A/P Narrative: 86-year-old female presenting with pleuritic chest pain, found to have extensive pulmonary emboli. Pulmonary emboli. Extensive, multi-lobar and bilateral. Hemodynamically stable throughout hospitalization. Good LE perfusion today (?poor forward flow yesterday?). Echo results show mildly reduced RV function with volume overload. Continues on full dose Lovenox for PE's. Suspect etiology of PE's due to fairly sedentary lifestyle. At last colo, was told she did not need any further. Family prefers a NOAC, and Xarelto covered by insurance. Has clot burden, but no hemodynamic instability and only mild changed in RV function, tavia should be a candidate for NOAC. Can be started at discharge. Plan: Continue full-dose Lovenox. Monitor hemoglobin and platelets while on full dose heparin. Depression with anxiety. Suspect there is also an underlying component of dementia with the patient confabulating and being evasive on answers. Plan: Continue with current regimen. Suspected dementia. Did not remember me Sun olena after seeing her Sun afternoon in the ED. Would explain her vague and deflecting answers to questions. Plan: Monitor. Hyperlipidemia, on simvastatin. Should not interfere with anticoagulation therapy. Plan: Continue simvastatin. Hypokalemia. Plan: Repleted Medical - PN: Qual - Stroke Symptom Onset Unknown: No - VTE Deep Vein Thrombosis/Pulmonary Embolism Present on Admission: Yes
[2017-07-01] MEDS ORDERED: ALBUTEROL SULFATE 2.5 MG/3 ML NEBULIZER NEB PRN (19:09)
[2017-07-01] MEDS ORDERED: ACETAMINOPHEN 325 MG TABLET PO PRN (19:09)
[2017-07-01] MEDS ORDERED: LORazepam 0.5 MG TABLET PO PRN (19:09)
[2017-07-01] MEDS ORDERED: HYDROcodone/APAP 5/325MG TABLET PO PRN (19:09)
[2017-07-01] MEDS ORDERED: ONDANSETRON 4 MG/2 ML VIAL IV PRN (19:09)
[2017-07-01] MEDS ORDERED: SIMVASTATIN 20 MG TABLET PO SCH (21:00)
[2017-07-02 06:54] LABS: Blood Urea Nitrogen 11 mg/dl (8-23)
[2017-07-02] MEDS ORDERED: PANTOPRAZOLE 40 MG TABLET PO SCH (07:30)
[2017-07-02 07:34] LABS: Basophils # (Auto) 0.1 K/mcL (0.0-0.3); Basophils % (Auto) 0.6 % (0.0-2.0); Eosinophils # (Auto) 0.3 K/mcL (0.0-0.7); Eosinophils % (Auto) 2.9 % (0.0-7.0); Granulocytes % (Auto) 69.9 % (38.0-78.0); Lymphocytes # (Auto) 1.9 K/mcL (1.5-4.8); Lymphocytes % (Auto) 19.4 % (15.5-49.0); Mean Cell Volume 96.9 fL (80.0-100.0); Mean Corpuscular HGB Conc 33.7 g/dL (31.0-36.0); Mean Corpuscular Hemoglobin 32.6 pg (26.0-34.0); Monocytes # (Auto) 0.7 K/mcL (0.1-0.9); Monocytes % (Auto) 7.2 % (1.0-12.0); Platelet Count 157 K/mcL (140-440); RBC 3.17 M/mcL (4.00-5.20); Red Cell Distribution Width 12.9 % (11.5-14.5)
[2017-07-02] MEDS ORDERED: CITALOPRAM 20 MG TABLET PO SCH (09:00)
[2017-07-02] MEDS ORDERED: buPROPion 150 MG TAB.SR.12H PO SCH (09:00)
[2017-07-02] MEDS: ENOXAPARIN 80 MG/0.8 ML SYRINGE SQ SCH (09:28)
[2017-07-02] MEDS: 0.9 % SODIUM CHLORIDE 10 ML SYRINGE IV SCH ×2 (09:29→15:40)
[2017-07-02] MEDS: OXYBUTYNIN CHLORIDE 5 MG TABLET PO SCH (09:29)
--- NOTE | 2017-07-02 10:32 | Discharge Summary ---
Medical - DS: Prov Patient information: Note initiated : 07/02/17 at 10:30 am Service Date, if different from initiated Date: [] Patient: Erin Tanner 86 y/o F admitted on 06/29/17 for Weakness, SOB/ Pulmonary Embolism. Chief Complaint: [] Date of admission: 06/29/17 14:35 Discharge date: 07/02/17 Primary care physician: Nikhil Estrada Admitting clinician: Amy Almeida Consults: 06/29/17 13:16 Consult to Physician [CONS] Stat Comment: Consulting Provider: Amy Almeida Reason For Exam: Physician to Consult Discharging clinician: Brittanie Mar Medical - DS: Meds - Discharge Medications Prescriptions: Rivaroxaban [Xarelto] 15 mg PO BIDCC #42 tab Rivaroxaban [Xarelto] 20 mg PO DAILY #90 tab Active and Home Medications: Home Medications Four Wheeled Walker #1 each 08/28/15 [Rx Confirmed 02/17/17 Last Taken Unknown] aspirin 81 mg tablet,delayed release 81 mg PO QDAY 09/10/16 [History Confirmed 06/29/17 Last Taken Unknown] cholecalciferol (vitamin D3) 1,000 unit capsule 1,000 unit PO QDAY cap [History Confirmed 06/29/17 Last Taken Unknown] potassium gluconate 500 mg (83 mg) tablet 500 mg PO QDAY tab 09/10/16 [History Confirmed 06/29/17 Last Taken Unknown] bupropion HCl SR 150 mg tablet,12 hr sustained-release 150 mg PO QAM 90 Days # 90 tab 10/21/16 [Rx Confirmed 06/29/17 Last Taken Unknown] citalopram 40 mg tablet 40 mg PO QDAY 90 Days #90 tab 12/02/16 [Rx Confirmed Last Taken Unknown] simvastatin 20 mg tablet 20 mg PO QPM 90 Days #90 tab 12/02/16 [Rx Confirmed Last Taken Unknown] Furosemide [Lasix] 10 - 20 mg PO DAILYP PRN 06/29/17 [History Confirmed Last Taken Unknown] Multivit,Ther Iron,Ca,FA & Min [Multivitamin W/Minerals] 1 tab PO DAILY [History Confirmed 06/29/17 Last Taken Unknown] Oxybutynin Chloride [Ditropan] 5 mg PO BID 06/29/17 [History Confirmed 06/29/17 Last Taken Unknown] Medical - DS: Hosp Hospital course: Ms. Tanner is a 86 year old F with a history of depression, hypercholesterolemia, reflux, osteoporosis, back surgery with left foot drop who presented with chest pain. Patient apparently started developing chest pain last night or early on the day of admission. She states she has been not feeling well for the last week, but is unable to quantify exactly what has been bothering her. The first the family has heard of any chest pains worse this morning when she arose. After further questioning, the patient thinks the pain developed overnight. Family notes that yesterday overall she is just not feeling well she was very weak when she was trying to move from place to place, though there was no apparent dyspnea and she was not complaining of chest pain or leg pain or swelling. This morning she was complaining of chest pain. It is sharp pain. It is worse with deep inspiration. 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 It's unclear if that is changed at all recently. Evaluation in the emergency department included elevated d-dimer, leading to CT angio the chest showing extensive bilateral pulmonary emboli. Patient's being hospitalized for treatment of pulmonary embolism. The patient for PE was treated by SQ lovenox, the patient initially was tachycardic and hypoxic, but later her hemodynamics stabilized. She did not have any adverse reactions to anticoagulations. No obvious reason for thrombosis noted, CT chest did not show any malignancy, Colonoscopy was neg. The patients poor activity likely the etiology here. She will be discharged on xareltro, Major risks benefits of the medication discussed, all questions answered. She will likely need follow up with freelance operator for further evaluation and to decide on the duration of treatment. Its likely that she will need life long anticoagulation. The patient Duplex of lower extremities was also positive for saphenous and popliteal DVT, the patient case was reviewed with Dr Zavaleta, to see if an IVC filter is warranted, he did not think that it was patient was weak and needs to go to Rehab center, family has declined that and have promised the patient that she will be kept home. They plan to take the patient back home with home health. The rest of the stay in the hospital was uneventful, no changes in her home med list done except addition of xarelto. Discharge diagnosis: Acute pulmonary Embolus. - Time Spent with Patient Total time spent providing and/or coordinating discharge services: Greater than 30 minutes Medical - DS: Exam - Constitutional Vitals: Vital Signs Temp Pulse Resp BP BP Pulse Ox 07/02/17 08:00 24 H 07/02/17 07:33 96.9 F L 24 H 132/78 94 07/02/17 04:00 98.4 F 81 28 H 127/83 94 07/01/17 23:53 97.7 F 95 H 24 H 127/78 95 07/01/17 20:00 97.3 F 73 26 H 119/76 98 07/01/17 19:15 90 07/01/17 16:44 99.1 F H 22 129/87 95 07/01/17 12:28 98.5 F 20 118/78 92 Intake and Output 07/01/17 07/02/17 07/02/17 21:59 05:59 13:59 Intake Total 780 / 780 360 / 360 Output Total Balance 779 / 779 358 / 358 Intake: Oral 780 / 780 360 / 360 Output: # of times incontinent of urine Other: Meal Dinner Percent of Meal Consumed 75% Feeding Ability Assist with Tray Set Up Weight 155 lb Additional comments: Constitutional; Afebrile, cooperative, alert, not in distress. Eyes- No icterus, , No periorbital swelling Ears- Ext ear normal, hearing normal to conversation. Neck- Midline trachea, supple Respiratory system: Air Entry equal on both sides, No crackles or wheezing, no rhonchi. CVS- Rate rhythm regular, S1,S2 heard, no gallop, no rub. Abdomen- Soft nontender abdomen, no organomegaly, no tenderness, no guarding or rigidity, AGENCY SALES MANAGEMENT ASSISTANT- AOOx2, moving all extremities, no gross focal deficit noted. Medical - DS: Data Labs on day of discharge: Labs from last 24 hours 07/02/17 07/02/17 05:00 05:00 WBC 9.8 RBC 3.17 L Hgb 10.4 L Hct 30.8 L MCV 96.9 MCH 32.6 MCHC 33.7 RDW 12.9 Plt Count 157 MPV 9.8 Gran % 69.9 Lymph % (Auto) 19.4 [place] % (Auto) 7.2 Eos % (Auto) 2.9 Baso % (Auto) 0.6 Gran # 6.9 Lymph # (Auto) 1.9 [place] # (Auto) 0.7 Eos # (Auto) 0.3 Baso # (Auto) 0.1 Sodium 142 Potassium 4.5 Chloride 106 Carbon Dioxide 23 Anion Gap 13.0 BUN 11 Creatinine 0.7 GFR Calculation 78 Glucose 91 Calcium 8.3 L Medical - DS: A/P - Patient/Caregiver Discharge Instructions Activity: as per physical therapy, increase activity as tolerated Diet: Regular Diet Additional Instructions: take Xareltro 15mg tablet twice daily for 21 days, once this is over, start taking the xareltro 20mg tablet once daily Watch out for bleeding in urine and stools Watch out for black stools as this can indicate bleeding in the stomach. Go to the ER if worsening symptoms, shortness of breath or any other concerning symptom Please establish care with a new doctor as soon as feasible, Follow up with Dr Merrill (Hematology ) in 2-4 weeks Prescriptions: Rivaroxaban [Xarelto] 15 mg PO BIDCC #42 tab Rivaroxaban [Xarelto] 20 mg PO DAILY #90 tab - Follow up Plan Follow up with: Nikhil Estrada MD [Primary Care Provider] - Andrae Merrill MD [Physician] - Mirna Deal MD [Physician] - Disposition: Home Health Service Prognosis: Fair Rehab Potential: Fair I certify that the patient requires SNF services: No Overall status at discharge: patient is progressing back to baseline Medical - DS: Qual - VTE Deep Vein Thrombosis/Pulmonary Embolism Present on Admission: Yes
--- NOTE | 2017-07-02 12:35 | Ultrasound Report ---
CLINICAL INFORMATION: Pulmonary embolus COMPARISON: None. FINDINGS: The common femoral, superficial femoral and paired trifurcation calf veins are easily compressible and show normal venous blood flow on color and spectral Doppler. There is moderate thrombus in the left popliteal vein and also the residual thrombus in the lesser saphenous and greater saphenous vein IMPRESSION: Moderate thrombus in the popliteal vein. Superficial thrombus in the lesser and greater saphenous veins Interpreted and Authenticated by: Timothy Heart 07/02/17
== END 2017-07-02 15:20 | disposition home health service (06) | DRG 176 ==
LOC: ED 07:55 → ICU 14:35 → MEDSUR 07-01 18:54
PROVIDERS: ADMIT Internal Medicine; ATTEND Internal Medicine